=== PATIENT | male | born 1975 | race Caucasian/White ===

== ENCOUNTER 2016-07-13 10:54 | Inpatient (IN) | payer OTHER ==
[~2016-07-13] VITALS: Ht 170.2 cm; Wt 82.6 kg
[2016-07-13 11:41] LABS: BASOPHILS % (AUTO) 0.2 % (0.0-2.0); EOSINOPHILS % (AUTO) 0.5 % (1.0-6.0); HEMOGLOBIN 14.5 g/dL (13.5-17.5); LYMPHOCYTES # (AUTO) 2.2 K/uL (1.0-4.8); LYMPHOCYTES % (AUTO) 23.9 % (22.0-44.0); MEAN CORPUSCULAR HGB CONC 32.9 G/dL (31.0-37.0); MEAN CORPUSCULAR VOLUME 88 fL (80-100); MONOCYTES # (AUTO) 0.5 K/uL (0.1-1.0); MONOCYTES % (AUTO) 5.4 % (2.0-9.0); NEUTROPHILS # (AUTO) 6.5 K/uL (1.8-7.7); PLATELET COUNT (AUTO) 298 K/uL (150-450); RED CELL DISTRIBUTION WIDTH 14.2 % (11.5-14.5); WHITE BLOOD COUNT (AUTO) 9.2 K/uL (4.5-11.0)
[2016-07-13 11:54] LABS: ANION GAP 9 mmol/L (8-16); CALCIUM, TOTAL 9.5 mg/dL (8.8-10.5); CARBON DIOXIDE 28 mmol/L (22-29); CHLORIDE 103 mmol/L (98-107); CREATININE 1.05 mg/dL (0.60-1.30); GLOMERULAR FILTR. RATE CALC > 60 mL/min (>60); POTASSIUM 4.5 mmol/L (3.5-5.1); SODIUM SERUM 140 mmol/L (136-145); UREA NITROGEN, BLOOD 14 mg/dL (7-18)
[2016-07-13 12:00] LABS: ALANINE AMINOTRANSFERASE 28 U/L (12-78); ALBUMIN 4.3 g/dL (3.4-5.0); ASPARTATE AMINOTRANSFERASE 29 U/L (15-37); BILIRUBIN,TOTAL 0.5 mg/dL (0.1-1.0); TOTAL PROTEIN, SERUM 8.4 g/dL (6.4-8.2)
[2016-07-13] MEDS ORDERED: LORazepam 2 MG TABLET PO PRN (12:00)
[2016-07-13] MEDS ORDERED: HALOPERIDOL 5 MG TABLET PO PRN (12:00)
[2016-07-13] MEDS ORDERED: ZOLPIDEM TARTRATE 10 MG TABLET PO PRN (12:00)
[2016-07-13] MEDS ORDERED: LEVO150 PO (12:06)
[2016-07-13 15:03] VITALS: BP 145/93
[2016-07-13 16:39] VITALS: BP 118/82
[2016-07-13] MEDS ORDERED: PETROLATUM,WHITE 71 GM JELLY TP PRN (17:00)
[2016-07-13] MEDS ORDERED: IBUPROFEN 600 MG TABLET PO PRN (17:00)
[2016-07-13] MEDS ORDERED: BENZOCAINE/MENTHOL LOZENGE MM PRN (17:00)
[2016-07-13] MEDS ORDERED: CloNIDine HCL 0.1 MG TABLET PO PRN (17:00)
[2016-07-13] MEDS ORDERED: ONDANSETRON HCL 4 MG TABLET PO PRN (17:00)
[2016-07-13] MEDS ORDERED: MAGNESIUM HYDROXIDE SUSPENSION 30 ML UDCUP PO PRN (17:00)
[2016-07-13] MEDS ORDERED: MAG HYDROX/AL HYDROX/SIMETH ES 30 ML SUSPENSION UDCUP PO PRN (17:00)
[2016-07-13] MEDS ORDERED: BACITRACIN 28.4 GM OINTMENT TP PRN (17:00)
[2016-07-13] MEDS ORDERED: LOPERAMIDE HCL 2 MG CAPSULE PO PRN (17:00)
[2016-07-13] MEDS ORDERED: ACETAMINOPHEN 325 MG TABLET PO PRN (17:00)
[2016-07-13] MEDS ORDERED: ALBUTEROL SULFATE HFA 90 MCG/PUFF 8 GM INHALER IH PRN (17:00)
[2016-07-14 00:19] VITALS: BP 116/76
[2016-07-14] MEDS ORDERED: LEVOTHYROXINE SODIUM 150 MCG TABLET PO SCH (06:30)
[2016-07-14 08:16] LABS: CHOL/HDL RATIO 7.5 (4.2-7.3); THYROID STIMULATING HORMONE 67.13 uIU/mL (0.36-3.74)
[2016-07-14 08:37] VITALS: BP 137/76
[2016-07-14] MEDS ORDERED: CITA20TA9 PO (08:55)
[2016-07-14] MEDS ORDERED: CITALOPRAM HYDROBROMIDE 20 MG TABLET PO SCH (09:00)
== END 2016-07-14 10:40 | disposition home or self-care (01) | DRG 881 ==
LOC: EEVIPCON 10:55 → EMS 10:55 → B2S 12:22
PROVIDERS: ADMIT Psychiatry & Neurology Psychiatry; ATTEND Psychiatry & Neurology Psychiatry
DX: F32.9 Major depressive disorder, single episode, unspecified (principal); R45.851 Suicidal ideations; E03.9 Hypothyroidism, unspecified; F12.90 Cannabis use, unspecified, uncomplicated; F42.9 Obsessive-compulsive disorder, unspecified; K59.00 Constipation, unspecified; G47.00 Insomnia, unspecified; Z72.89 Other problems related to lifestyle; Z71.51 Drug abuse counseling and surveillance of drug abuser; Z71.41 Alcohol abuse counseling and surveillance of alcoholic
CPT/HCPCS: 82306; 84443; 99285; G0480